=== PATIENT | male | born 1975 | race African-American/Black ===

== ENCOUNTER 2016-08-21 14:25 | Inpatient (IN) | payer SELFPAY ==
[~2016-08-21] VITALS: Ht 177.8 cm; Wt 108.9 kg
--- NOTE | 2016-08-21 14:48 | RAD ---
Clinical indications: Slurred speech and confusion today. Code stroke.. Technique: Noncontrast axial cross sectional scanning of the head was performed. PQRS Compliance Statement: One or more of the following individualized dose reduction techniques were utilized for this examination: 1. Automated exposure control 2. Adjustment of the mA and/or kV according to patient size 3. Use of iterative reconstruction technique Findings: No acute intracranial hemorrhage or midline shift or mass-effect or hydrocephalus or extra-axial fluid collection is seen. No focal hypodense area or sulci effacement is seen to indicate an acute infarct or edema radiographically. No skull fracture or pneumocephalus is seen. No opacification of the mastoid sinuses or the paranasal sinuses is seen. The maxillary sinuses are not completely seen in this study. Impression: No acute intracranial abnormality is seen. Note-this critical result was called to the emergency room physician at 2:46 PM on August 21, 2016.
--- NOTE | 2016-08-21 15:02 | EKG ---
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
[2016-08-21 15:13] LABS: BASO # 0.1 x10^3/uL (0.0-0.2); BASO % 1 % (0-3); EOS % 3 % (0-3); HEMATOCRIT 42.7 % (39.0-53.0); HEMOGLOBIN 13.6 g/dL (13.0-17.5); LYMPH % 33 % (24-48); MEAN CORPUSCULAR HEMOGLOBIN 23 pg (25-35); MEAN CORPUSCULAR HGB CONC 32 g/dL (31-37); MEAN CORPUSCULAR VOLUME 71 fL (79-100); MONO % 9 % (0-9); NEUT % 54 % (31-73); PLATELET COUNT 180 x10^3/uL (140-400); RED BLOOD COUNT 5.99 x10^6/uL (4.30-5.70); RED CELL DISTRIBUTION WIDTH 14.8 % (11.5-14.5); WHITE BLOOD COUNT 5.9 x10^3/uL (4.0-11.0)
[2016-08-21 15:25] LABS: CALCIUM 9.7 mg/dL (8.5-10.1); CREATININE 1.2 mg/dL (0.7-1.3); GFR 66.1
--- NOTE | 2016-08-21 15:43 | PDOC2 ---
NEUROLOGY CONSULT Date of Admission Date of Admission DATE: 08/21/16 TIME: 15:39 Reason for Consult Reason for Consult: TIA symptoms Referring Physician Referring Physician: Dr. Christianson Source Source: Caregiver, Chart review, Patient History of Present Illness History of Present Illness The patient is a 41-year-old right-handed male who was at work this morning when he noticed lightheadedness, dizziness, slurred speech, headache feelings. He had similar problems about 6 months ago for which she was admitted to [facility]. Stroke workup was negative and he was told his symptoms were due to hypoglycemia. Indeed, his blood sugar is 83 in the emergency department. He is feeling better, but his says that his speech is still slurred. There is no history of stroke, seizure, or head injury. 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 14 point review of systems is negative. Physical Exam Physical Examination PHYSICAL EXAMINATION: Vital signs: see above. General appearance is normal and in no acute distress. HEENT: Normocephalic and nontraumatic. Eyes, nose, ears, and throat are unremarkable. Neck is supple. No lymphadenopathy. No bruits are heard over the carotid artery. No crepitus. NEUROLOGICAL EXAMINATION: Mental Status Examination: Alert. Oriented to time, place, and person. Answers questions and follows commends. Pupils are equal round and reactive to light and accommodation. Funduscopic exam: No papilledema. Extraocular movements are intact. Visual field exam shows no defect on the direct confrontation. No motor or sensory deficits on the facial exam. Uvula in the midline and the soft palate elevated symmetrically. No deviation of the tongue to any direction. Gross hearing is normal. Shoulder shrug normal. Muscle tone is normal. Muscle strength is 5. Deep tendon reflexes are 2+ all around. Plantar reflex is with flexion response bilaterally. Gmcryl-cu-uuvg test performance is accurate. Tandem walk test is accurate. Alternative movements are accurate. Romberg test is negative. Gait is normal. Sensory exam shows no deficits. No cerebellar signs are elicited. Vitals VITALS Vital Signs Date Time Temp Pulse Resp B/P Pulse Ox O2 Delivery O2 Flow Rate FiO2 08/21/16 14:25 98.6 102 20 132/75 100 Room Air 98.6 Labs Labs Laboratory Tests Test 08/21/16 15:05 White Blood Count 5.9x10^3/uL (4.0-11.0) Red Blood Count 5.99x10^6/uL (4.30-5.70) Hemoglobin 13.6g/dL (13.0-17.5) Hematocrit 42.7% (39.0-53.0) Mean Corpuscular Volume 71fL (79-100) Mean Corpuscular Hemoglobin 23pg (25-35) Mean Corpuscular Hemoglobin Concent 32g/dL (31-37) Red Cell Distribution Width 14.8% (11.5-14.5) Platelet Count 180x10^3/uL (140-400) Neutrophils (%) (Auto) 54% (31-73) Lymphocytes (%) (Auto) 33% (24-48) Monocytes (%) (Auto) 9% (0-9) Eosinophils (%) (Auto) 3% (0-3) Basophils (%) (Auto) 1% (0-3) Neutrophils # (Auto) 3.2x10^3uL (1.8-7.7) Lymphocytes # (Auto) 2.0x10^3/uL (1.0-4.8) Monocytes # (Auto) 0.5x10^3/uL (0.0-1.1) Eosinophils # (Auto) 0.2x10^3/uL (0.0-0.7) Basophils # (Auto) 0.1x10^3/uL (0.0-0.2) Sodium Level 142mmol/L (136-145) Potassium Level 4.0mmol/L (3.5-5.1) Chloride Level 104mmol/L (98-107) Carbon Dioxide Level 28mmol/L (21-32) Anion Gap 10 (6-14) Blood Urea Nitrogen 18mg/dL (8-26) Creatinine 1.2mg/dL (0.7-1.3) Estimated GFR (Cockcroft-Gault) 66.1 Glucose Level 205mg/dL (70-99) Calcium Level 9.7mg/dL (8.5-10.1) Troponin I Quantitative < 0.017ng/mL (0.000-0.055) Laboratory Tests Test 08/21/16 15:05 White Blood Count 5.9x10^3/uL (4.0-11.0) Red Blood Count 5.99x10^6/uL (4.30-5.70) Hemoglobin 13.6g/dL (13.0-17.5) Hematocrit 42.7% (39.0-53.0) Mean Corpuscular Volume 71fL (79-100) Mean Corpuscular Hemoglobin 23pg (25-35) Mean Corpuscular Hemoglobin Concent 32g/dL (31-37) Red Cell Distribution Width 14.8% (11.5-14.5) Platelet Count 180x10^3/uL (140-400) Neutrophils (%) (Auto) 54% (31-73) Lymphocytes (%) (Auto) 33% (24-48) Monocytes (%) (Auto) 9% (0-9) Eosinophils (%) (Auto) 3% (0-3) Basophils (%) (Auto) 1% (0-3) Neutrophils # (Auto) 3.2x10^3uL (1.8-7.7) Lymphocytes # (Auto) 2.0x10^3/uL (1.0-4.8) Monocytes # (Auto) 0.5x10^3/uL (0.0-1.1) Eosinophils # (Auto) 0.2x10^3/uL (0.0-0.7) Basophils # (Auto) 0.1x10^3/uL (0.0-0.2) Sodium Level 142mmol/L (136-145) Potassium Level 4.0mmol/L (3.5-5.1) Chloride Level 104mmol/L (98-107) Carbon Dioxide Level 28mmol/L (21-32) Anion Gap 10 (6-14) Blood Urea Nitrogen 18mg/dL (8-26) Creatinine 1.2mg/dL (0.7-1.3) Estimated GFR (Cockcroft-Gault) 66.1 Glucose Level 205mg/dL (70-99) Calcium Level 9.7mg/dL (8.5-10.1) Troponin I Quantitative < 0.017ng/mL (0.000-0.055) Images Images CT head is negative Assessment/Plan Assessment/Plan Impression: Transient ischemic attack symptoms probably related to hypoglycemia as exam is normal now even though his says that he has dysarthria. He had similar symptoms in [facility] and was found to have hypoglycemia then, as well. He Recommendations: MRI of the brain Further studies only if MRI is negative Discussed with patient and his Hold on aspirin or other anticoagulation as he is allergic to aspirin Discussed with Dr. Christianson Thank you for letting me help with the patient's care. RISA REEVES MD Aug 21, 2016 15:43
[2016-08-21 15:51] LABS: HYPOCHROMIA SLIGHT; MICROCYTOSIS SLIGHT; POIKILOCYTOSIS SLIGHT
[2016-08-21 15:54] LABS: PLT ESTIMATE ADEQUATE (ADEQUATE)
--- NOTE | 2016-08-21 16:11 | PHYS DOC ---
Past Medical History Past Medical History: Diabetes-Type II, Hypertension Past Surgical History: No Surgical History Alcohol Use: None Drug Use: None Adult General Chief Complaint Chief Complaint: ALTERED MENTAL STATUS HPI HPI 41-year-old male who presents with acute onset of headache as well as concern for slurred speech approximately one hour prior to arrival. 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 Upon arrival the patient does state he has generalized headache but that this is not the worst headache he's had before. He states he does have history of headaches as well but these are usually in occurrence with a low blood sugar. Patient does state he ate prior to this headache but a blood sugar taken at the scene was 88 and he states this is low for him to be the source of his headache. Patient is able to articulate clearly at this time and I do not have any evidence that he is slurring his speech. He denies any focal weakness in his body. He is able to follow my commands and answer all my questions appropriately. He does have history of hypertension and diabetes type 2 as well. Review of Systems Review of Systems Constitutional: Denies fever or chills [] Eyes: Denies change in visual acuity, redness, or eye pain [] HENT: Denies nasal congestion or sore throat [] Respiratory: Denies cough or shortness of breath [] Cardiovascular: No additional information not addressed in HPI [] GI: Denies abdominal pain, nausea, vomiting, bloody stools or diarrhea [] : Denies dysuria or hematuria [] Musculoskeletal: Denies back pain or joint pain [] Integument: Denies rash or skin lesions [] Neurologic: Has headache, denies focal weakness or sensory changes [] Endocrine: Denies polyuria or polydipsia [] Current Medications Current Medications Current Medications Medications (Trade) Dose Ordered Sig/Vale Start Time Stop Time Status Last Admin Dose Admin Acetaminophen (Tylenol) 650 mg PRN Q4HRS PRN 08/21/16 16:15 08/22/16 16:14 Dexamethasone Sodium Phosphate (Decadron) 10 mg 1X ONCE 08/21/16 16:15 08/21/16 16:16 DC 08/21/16 16:16 10 MG Diphenhydramine HCl (Benadryl) 25 mg 1X ONCE 08/21/16 16:15 08/21/16 16:16 DC 08/21/16 16:17 25 MG Fentanyl Citrate (Fentanyl 2ml Vial) 50 mcg PRN Q2HR PRN 08/21/16 16:15 08/22/16 16:14 Ketorolac Tromethamine (Toradol) 30 mg 1X ONCE 08/21/16 16:15 08/21/16 16:16 DC 08/21/16 16:16 30 MG Metoclopramide HCl 10 mg 10 mg 1X ONCE 08/21/16 16:15 08/21/16 16:16 DC 08/21/16 16:15 10 MG Ondansetron HCl (Zofran) 4 mg PRN Q8HRS PRN 08/21/16 16:15 08/22/16 16:14 Sodium Chloride (Iv Sodium Chloride 0.9% 500ml Bag) 500 ml @ 500 mls/hr 1X ONCE 08/21/16 16:15 08/21/16 17:14 DC 08/21/16 16:17 500 MLS/HR Allergies Allergies Allergies Coded Allergies Type Severity Reaction Last Updated Verified aspirin Allergy Intermediate Hives 08/21/16 Yes Physical Exam Physical Exam Constitutional: Well developed, well nourished, no acute distress, non-toxic appearance. [] HENT: Normocephalic, atraumatic, bilateral external ears normal, oropharynx moist, no oral exudates, nose normal. [] Eyes: PERRLA, EOMI, conjunctiva normal, no discharge. [] Neck: Normal range of motion, no tenderness, supple, no stridor. [] Cardiovascular:Heart rate regular rhythm, no murmur [] Lungs & Thorax: Bilateral breath sounds clear to auscultation [] Abdomen: Bowel sounds normal, soft, no tenderness, no masses, no pulsatile masses. [] Skin: Warm, dry, no erythema, no rash. [] Back: No tenderness, no CVA tenderness. [] Extremities: No tenderness, no cyanosis, no clubbing, ROM intact, no edema. [] Neurologic: Alert and oriented X 3, normal motor function, normal sensory function, no focal deficits noted. [] Psychologic: Affect normal, judgement normal, mood normal. [] Current Patient Data Vital Signs Vital Signs Date Time Temp Pulse Resp B/P Pulse Ox O2 Delivery O2 Flow Rate FiO2 08/21/16 16:15 96 17 152/76 98 08/21/16 14:50 Room Air 08/21/16 14:25 98.6 98.6 Lab Values Laboratory Tests Test 08/21/16 15:05 White Blood Count 5.9x10^3/uL (4.0-11.0) Red Blood Count 5.99x10^6/uL (4.30-5.70) H Hemoglobin 13.6g/dL (13.0-17.5) Hematocrit 42.7% (39.0-53.0) Mean Corpuscular Volume 71fL (79-100) L Mean Corpuscular Hemoglobin 23pg (25-35) L Mean Corpuscular Hemoglobin Concent 32g/dL (31-37) Red Cell Distribution Width 14.8% (11.5-14.5) H Platelet Count 180x10^3/uL (140-400) Neutrophils (%) (Auto) 54% (31-73) Lymphocytes (%) (Auto) 33% (24-48) Monocytes (%) (Auto) 9% (0-9) Eosinophils (%) (Auto) 3% (0-3) Basophils (%) (Auto) 1% (0-3) Neutrophils # (Auto) 3.2x10^3uL (1.8-7.7) Lymphocytes # (Auto) 2.0x10^3/uL (1.0-4.8) Monocytes # (Auto) 0.5x10^3/uL (0.0-1.1) Eosinophils # (Auto) 0.2x10^3/uL (0.0-0.7) Basophils # (Auto) 0.1x10^3/uL (0.0-0.2) Platelet Estimate Adequate (ADEQUATE) Hypochromasia Slight Poikilocytosis Slight Anisocytosis Microcytosis Slight Sodium Level 142mmol/L (136-145) Potassium Level 4.0mmol/L (3.5-5.1) Chloride Level 104mmol/L (98-107) Carbon Dioxide Level 28mmol/L (21-32) Anion Gap 10 (6-14) Blood Urea Nitrogen 18mg/dL (8-26) Creatinine 1.2mg/dL (0.7-1.3) Estimated GFR (Cockcroft-Gault) 66.1 Glucose Level 205mg/dL (70-99) H Calcium Level 9.7mg/dL (8.5-10.1) Troponin I Quantitative < 0.017ng/mL (0.000-0.055) Laboratory Tests 08/21/16 15:05 Laboratory Tests 08/21/16 15:05 EKG EKG [] Radiology/Procedures Radiology/Procedures CT of the head without contrast demonstrates the following: Findings: No acute intracranial hemorrhage or midline shift or mass-effect or hydrocephalus or extra-axial fluid collection is seen. No focal hypodense area or sulci effacement is seen to indicate an acute infarct or edema radiographically. No skull fracture or pneumocephalus is seen. No opacification of the mastoid sinuses or the paranasal sinuses is seen. The maxillary sinuses are not completely seen in this study. Course & Med Decision Making Course & Med Decision Making Pertinent Labs and Imaging studies reviewed. (See chart for details) This 40-year-old male with ongoing headache had a CT of his head as negative for any acute abnormalities. The neurologist, Dr. Manning, was able to see the patient at bedside and stated the patient would be suitable to have an MRI he would be happy to consult. Patient was given a migraine cocktail for symptoms and felt improved. Patient has an MRI scheduled for the morning. It is possible this episode was related to a low blood glucose but in light of the fact that he has multiple comorbidities MRI and admission for observation is warranted. I discussed this need with the hospitalist, Dr. Christianson, who agreed with this assessment and plan. His laboratory workup was otherwise unremarkable. Upon multiple assessments, the patient does not have any slurred speech whatsoever and his headache has improved significantly prior to admission. Dragon Disclaimer Dragon Disclaimer This electronic medical record was generated, in whole or in part, using a voice recognition dictation system. Departure Departure Impression: Primary Impression: Headache Disposition: ADMITTED INPATIENT Admitting Physician: Jan Christianson Referrals: UNKNOWN PCP NAME (PCP) ORALIA MCKNIGHT DO Aug 21, 2016 16:11
[2016-08-21] MEDS ORDERED: DIPHENHYDRAMINE 50 MG/ML VIAL IVP ONE (16:15)
[2016-08-21] MEDS ORDERED: METOCLOPRAMIDE HCL 10 MG/2 ML VIAL. IV ONE (16:15)
[2016-08-21] MEDS ORDERED: FENTANYL PF 100 MCG/2 ML VIAL. IV PRN (16:15)
[2016-08-21] MEDS ORDERED: ONDANSETRON PF 4 MG/2 ML VIAL. IV PRN ×2 (16:15→21:15)
[2016-08-21] MEDS ORDERED: ACETAMINOPHEN 325 MG TABLET. PO PRN ×2 (16:15→21:15)
[2016-08-21] MEDS ORDERED: DEXAMETHASONE SOD PHOS 20 MG/5 ML VIAL. IV ONE (16:15)
[2016-08-21] MEDS ORDERED: KETOROLAC TROMETHAMINE 30 MG/ML SYRINGE. IV ONE (16:15)
[2016-08-21] MEDS ORDERED: IV NORMAL SALINE 500ML BAG 500 ML IV ONE (16:15)
[2016-08-21 17:30] VITALS: BP 121/77
[2016-08-21] MEDS ORDERED: ATOR20TA58 PO (18:18)
[2016-08-21] MEDS ORDERED: LISI10TA2 PO (18:18)
[2016-08-21] MEDS ORDERED: TIZA4TAB PO (18:18)
[2016-08-21] MEDS ORDERED: CANA1TAB4 PO (18:18)
[2016-08-21 19:05] VITALS: BP 123/71
[2016-08-21] MEDS ORDERED: DEXTROSE 50% 25 GM / 50ML DISP.SYRIN. IV PRN (21:15)
[2016-08-21] MEDS ORDERED: ALBUTEROL SULFATE 2.5 MG/3 ML NEBU. NEB PRN (21:15)
[2016-08-21] MEDS ORDERED: hydrALAZINE 20 MG/ML VIAL. IVP PRN (21:15)
[2016-08-21] MEDS: tiZANidine 4 MG TABLET. PO SCH (22:00)
[2016-08-21] MEDS: ATORVASTATIN CALCIUM 20 MG TABLET PO SCH (22:00)
[2016-08-21 23:11] VITALS: BP 101/48
[2016-08-22 03:10] VITALS: BP 131/76
[2016-08-22 05:54] LABS: BASO % 0 % (0-3); EOS % 0 % (0-3); HEMATOCRIT 42.5 % (39.0-53.0); LYMPH % 12 % (24-48); MEAN CORPUSCULAR HEMOGLOBIN 23 pg (25-35); MEAN CORPUSCULAR HGB CONC 31 g/dL (31-37); MEAN CORPUSCULAR VOLUME 73 fL (79-100); MONO % 4 % (0-9); NEUT % 85 % (31-73); PLATELET COUNT 168 x10^3/uL (140-400); RED BLOOD COUNT 5.79 x10^6/uL (4.30-5.70); RED CELL DISTRIBUTION WIDTH 15.2 % (11.5-14.5); WHITE BLOOD COUNT 8.8 x10^3/uL (4.0-11.0)
[2016-08-22 06:19] LABS: CALCIUM 9.2 mg/dL (8.5-10.1); CREATININE 1.2 mg/dL (0.7-1.3); POTASSIUM 4.2 mmol/L (3.5-5.1)
[2016-08-22 07:00] VITALS: BP 136/80
--- NOTE | 2016-08-22 07:22 | EKG ---
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
[2016-08-22] MEDS ORDERED: CLOPIDOGREL BISULFATE 75 MG TABLET PO ONE (07:45)
[2016-08-22] MEDS: INSULIN ASPART 300 UNITS/3 ML INSULN.PEN SQ SCH ×3 (08:00→18:01)
--- NOTE | 2016-08-22 09:47 | PDOC2 ---
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 He reports yesterday while at work he developed a significant headache. He was reportedly slurring his speech though that was not evident on presentation to ED. He also reports a heavy pressure sensation in his chest and achiness in his left arm. He reports that his left arm feels better if he is sitting up and raises it in the air. He also reports his chest discomfort is somewhat improved with sitting up. He denies dyspnea, congestive symptoms or palpitations. He denies lightheadedness or syncope. He does complain of neck pain. He denies any symptoms prior to yesterday. He reports he is very active. His significant other is at bedside and reports that he again began to have speech abnormalities this am when going for his MRI. PAST MEDICAL HISTORY Past Medical History diabetes mellitus PAST SURGICAL HISTORY Past Surgical History vasectomy FAMILY HISTORY Family History coronary artery disease SOCIAL HISTORY Social History non smoker, no significant ETOH, no illicit drugs CURRENT MEDICATIONS CURRENT MEDICATIONS Current Medications Medications (Trade) Dose Ordered Sig/Vale Route PRN Reason Start Time Stop Time Status Last Admin Dose Admin Ketorolac Tromethamine (Toradol) 30 mg 1X ONCE IV 08/21/16 16:15 08/21/16 16:16 DC 08/21/16 16:16 Diphenhydramine HCl (Benadryl) 25 mg 1X ONCE IVP 08/21/16 16:15 08/21/16 16:16 DC 08/21/16 16:17 Metoclopramide HCl 10 mg 10 mg 1X ONCE IV 08/21/16 16:15 08/21/16 16:16 DC 08/21/16 16:15 Sodium Chloride (Iv Sodium Chloride 0.9% 500ml Bag) 500 ml @ 500 mls/hr 1X ONCE IV 08/21/16 16:15 08/21/16 17:14 DC 08/21/16 16:17 Dexamethasone Sodium Phosphate (Decadron) 10 mg 1X ONCE IV 08/21/16 16:15 08/21/16 16:16 DC 08/21/16 16:16 Ondansetron HCl (Zofran) 4 mg PRN Q8HRS PRN IV NAUSEA/VOMITING 08/21/16 16:15 08/22/16 16:14 08/22/16 07:50 Clopidogrel Bisulfate (Plavix) 75 mg 1X ONCE PO 08/22/16 07:45 08/22/16 07:46 DC 08/22/16 07:47 ALLERGIES ALLERGIES: Coded Allergies: aspirin (Verified Allergy, Intermediate, Hives, 08/21/16) ROS Review of System as per HPI or negative PHYSICAL EXAM General: Alert, Oriented X3 (however it took several minutes for him to be able to tell me his age), Cooperative, No acute distress HEENT: Atraumatic, EOMI, Mucous membr. moist/pink Lungs: Clear to auscultation, Normal air movement Heart: Regular rate, Normal S1, Normal S2, Other (no gallops, clicks or rubs) Abdomen: Normal bowel sounds, Soft, No tenderness Extremities: No clubbing, No cyanosis, No edema, Normal pulses Neuro: Strength at 5/5 X4 ext, Other (dysarthria) Psych/Mental Status: Mood NL VITALS VITALS Vital Signs Date Time Temp Pulse Resp B/P Pulse Ox O2 Delivery O2 Flow Rate FiO2 08/22/16 03:10 97.7 93 16 131/76 96 Room Air 97.7 LABS Lab: Laboratory Tests Test 08/21/16 15:05 08/21/16 18:12 08/21/16 20:30 08/22/16 02:51 White Blood Count 5.9x10^3/uL (4.0-11.0) Red Blood Count 5.99x10^6/uL (4.30-5.70) Hemoglobin 13.6g/dL (13.0-17.5) Hematocrit 42.7% (39.0-53.0) Mean Corpuscular Volume 71fL (79-100) Mean Corpuscular Hemoglobin 23pg (25-35) Mean Corpuscular Hemoglobin Concent 32g/dL (31-37) Red Cell Distribution Width 14.8% (11.5-14.5) Platelet Count 180x10^3/uL (140-400) Neutrophils (%) (Auto) 54% (31-73) Lymphocytes (%) (Auto) 33% (24-48) Monocytes (%) (Auto) 9% (0-9) Eosinophils (%) (Auto) 3% (0-3) Basophils (%) (Auto) 1% (0-3) Neutrophils # (Auto) 3.2x10^3uL (1.8-7.7) Lymphocytes # (Auto) 2.0x10^3/uL (1.0-4.8) Monocytes # (Auto) 0.5x10^3/uL (0.0-1.1) Eosinophils # (Auto) 0.2x10^3/uL (0.0-0.7) Basophils # (Auto) 0.1x10^3/uL (0.0-0.2) Platelet Estimate Adequate (ADEQUATE) Hypochromasia Slight Poikilocytosis Slight Anisocytosis Microcytosis Slight Sodium Level 142mmol/L (136-145) Potassium Level 4.0mmol/L (3.5-5.1) Chloride Level 104mmol/L (98-107) Carbon Dioxide Level 28mmol/L (21-32) Anion Gap 10 (6-14) Blood Urea Nitrogen 18mg/dL (8-26) Creatinine 1.2mg/dL (0.7-1.3) Estimated GFR (Cockcroft-Gault) 66.1 Glucose Level 205mg/dL (70-99) Calcium Level 9.7mg/dL (8.5-10.1) Troponin I Quantitative < 0.017ng/mL (0.000-0.055) Glucose (Fingerstick) 179mg/dL (70-99) 328mg/dL (70-99) 292mg/dL (70-99) Test 08/22/16 04:37 08/22/16 04:57 08/22/16 06:55 08/22/16 07:30 White Blood Count 8.8x10^3/uL (4.0-11.0) Red Blood Count 5.79x10^6/uL (4.30-5.70) Hemoglobin 13.0g/dL (13.0-17.5) Hematocrit 42.5% (39.0-53.0) Mean Corpuscular Volume 73fL (79-100) Mean Corpuscular Hemoglobin 23pg (25-35) Mean Corpuscular Hemoglobin Concent 31g/dL (31-37) Red Cell Distribution Width 15.2% (11.5-14.5) Platelet Count 168x10^3/uL (140-400) Neutrophils (%) (Auto) 85% (31-73) Lymphocytes (%) (Auto) 12% (24-48) Monocytes (%) (Auto) 4% (0-9) Eosinophils (%) (Auto) 0% (0-3) Basophils (%) (Auto) 0% (0-3) Neutrophils # (Auto) 7.4x10^3uL (1.8-7.7) Lymphocytes # (Auto) 1.0x10^3/uL (1.0-4.8) Monocytes # (Auto) 0.3x10^3/uL (0.0-1.1) Eosinophils # (Auto) 0.0x10^3/uL (0.0-0.7) Basophils # (Auto) 0.0x10^3/uL (0.0-0.2) Sodium Level 137mmol/L (136-145) Potassium Level 4.2mmol/L (3.5-5.1) Chloride Level 101mmol/L (98-107) Carbon Dioxide Level 22mmol/L (21-32) Anion Gap 14 (6-14) Blood Urea Nitrogen 21mg/dL (8-26) Creatinine 1.2mg/dL (0.7-1.3) Estimated GFR (Cockcroft-Gault) 80.0 Glucose Level 290mg/dL (70-99) Calcium Level 9.2mg/dL (8.5-10.1) Glucose (Fingerstick) 238mg/dL (70-99) Troponin I Quantitative < 0.017ng/mL (0.000-0.055) Test 08/22/16 07:49 08/22/16 08:17 Glucose (Fingerstick) 226mg/dL (70-99) 231mg/dL (70-99) EKG EKG EKG - unable to view CT head - Impression: No acute intracranial abnormality is seen. MRI brain - pending ASSESSMENT/PLAN ASSESSMENT/PLAN 1. chest pain, atypical - Cardiac enzymes negative. RF reduction, Echo with bubble study. Consider OP MPI secondary to RF and family history. 2. dysarthria - MRI pending, Neuro following. Problems: KATRAPATI,LUISA S MD 08/22/16 1411: CARDIAC CONSULT ALLERGIES ALLERGIES: Coded Allergies: aspirin (Verified Allergy, Intermediate, Hives, 08/21/16) ASSESSMENT/PLAN ASSESSMENT/PLAN Pt. seen and examined. 41 y.o w/ TIA like symptoms. No clear neurological compromise on exam. MRI negative. Labs wnl. Consider outpt eval with echo/event monitor if recurrence, low likelihood that this is cardiac related. No further testing necessary. If he remains inpt for other reasons, will obtain echo prior to DC. Thx for consult. Pls call with questions. Problems: GINGER BRAN APRN Aug 22, 2016 09:47 LUISA BAHENA MD Aug 22, 2016 14:11
[2016-08-22] MEDS: LISINOPRIL 10 MG TABLET PO SCH (10:08)
[2016-08-22] MEDS: tiZANidine 4 MG TABLET. PO SCH ×3 (10:09→20:13)
--- NOTE | 2016-08-22 10:39 | RAD ---
BRAIN W/O CONTRAST History:TIA, left-sided weakness and speech difficulty for one hour Technique: Multiplanar, multi sequential noncontrast MR imaging was performed of the brain. Comparison: None other than head CT 08/21/2016 Findings: There is mild motion. There is no restricted diffusion suggestive of recent infarct or cytotoxic of the edema. There is no intra-axial mass effect, midline shift, extra axial fluid collection. Ventricles, sulci, cisterns are within normal limits in size and configuration. There is no significant focal signal abnormality including hemosiderin deposition of the brain parenchyma. There is preservation of the major arterial intracranial flow voids at the skull base. There is patchy mild ethmoid air cell mucosal thickening, very minimal maxillary and frontal sinus mucosal thickening.There is likely mucus retention cyst of the right sphenoid sinus, minimal left sphenoid sinus mucosal thickening. There is slightly disconjugate gaze. There is mild proptosis greater on the right. Cerebellar tonsils are normal in location. There is preservation of the marrow signal of the clivus. There is no significant abnormality of the pineal gland or pituitary gland. Impression: 1.There is no evidence of recent infarct or intracranial mass effect, no significant intracranial abnormality. 2. There is mild paranasal sinus mucosal thickening as stated. 3. There is nonspecific mild proptosis greater on the right.
[2016-08-22 11:00] VITALS: BP 119/81
[2016-08-22] MEDS: HYDROCODONE/APAP 5/325MG TABLET. PO PRN ×2 (11:45→18:03)
--- NOTE | 2016-08-22 11:57 | RAD ---
Carotid Doppler ultrasound History: Dizziness, left-sided weakness. Multiple grayscale and color sonographic images and spectral analysis waveform images were acquired of the carotid and vertebral arteries. Comparison: None Findings: Stenosis calculations for carotid ultrasound studies are derived from validated velocity criteria which are known to correlate with the NASCET methodology. Right: Proximal CCA PSV 122 cm/sec EDV 16 cm/sec Mid CCA PSV 118 cm/sec EDV 19 cm/sec Distal CCA PSV 86 cm/sec EDV 19 cm/sec Proximal ICA PSV 58 cm/sec EDV 21 cm/sec Mid ICA PSV 64 cm/sec EDV 25 cm/sec Distal ICA PSV 56 cm/sec EDV 29 cm/sec ECA PSV 77 cm/sec Vertebral PSV 16 cm/sec ICA/CCA ratio less than 1 Left: Proximal CCA PSV 166 cm/sec EDV 14 cm/sec Mid CCA PSV 127 cm/sec EDV 14 cm/sec Distal CCA PSV 125 cm/sec EDV 20 cm/sec Proximal ICA PSV 62 cm/sec EDV 23 cm/sec Mid ICA PSV 61 cm/sec EDV 21 cm/sec Distal ICA PSV 57 cm/sec EDV 23 cm/sec ECA PSV 105 cm/sec Vertebral PSV 47 cm/sec ICA/CCA ratio less than 1 There is antegrade flow in the bilateral vertebral arteries. No significant focal stenosis is demonstrated on grayscale or color images. Impression: There is no evidence of a hemodynamically significant stenosis..
[2016-08-22 15:00] VITALS: BP 115/64
[2016-08-22] MEDS ORDERED: DEXTROSE 50% 25 GM / 50ML DISP.SYRIN. IV PRN (17:00)
[2016-08-22 19:00] VITALS: BP 133/86
--- NOTE | 2016-08-22 19:58 | PDOC ---
PROGRESS NOTES Assessment Problems Medical Problems: (1) Headache Status: Acute Stroke symptoms, possibly related to hypoglycemia, possible migraine phenomenon , no evidence of acute stroke or other intracranial abnormality. He also had a negative workup in [place]. Plan Plavix Escitalopram for headache prevention Pain medications as already ordered Neurological workup has finished and he can probably be discharged tomorrow if he remains stable Subjective He has had fluctuating symptoms through the day including left-sided weakness and stuttering. Objective Vital Signs Date Time Temp Pulse Resp B/P Pulse Ox O2 Delivery O2 Flow Rate FiO2 08/22/16 15:00 97.9 79 16 115/64 95 Room Air 97.9 Intake and Output 08/22/16 07:00 Intake Total 240 ml Balance 240 ml Intake Oral 240 ml # Voids 3 PHYSICAL EXAM Alert. Oriented to time, place and person. Speech is a little slow, but not dysarthric PERRL. EOMI. CN: no focal findings. Muscle tone: normal. Muscle strength: 5/5 DTR: 2+ Plantar reflex: Flexor Gait: not examined in bed. Sensory exam: no abnormal findings. No cerebellar signs elicited. Review of Relevant I have reviewed the following items samson (where applicable) has been applied. Labs Laboratory Tests Test 08/21/16 15:05 08/21/16 18:12 08/21/16 20:30 08/22/16 02:51 White Blood Count 5.9x10^3/uL (4.0-11.0) Red Blood Count 5.99x10^6/uL (4.30-5.70) Hemoglobin 13.6g/dL (13.0-17.5) Hematocrit 42.7% (39.0-53.0) Mean Corpuscular Volume 71fL (79-100) Mean Corpuscular Hemoglobin 23pg (25-35) Mean Corpuscular Hemoglobin Concent 32g/dL (31-37) Red Cell Distribution Width 14.8% (11.5-14.5) Platelet Count 180x10^3/uL (140-400) Neutrophils (%) (Auto) 54% (31-73) Lymphocytes (%) (Auto) 33% (24-48) Monocytes (%) (Auto) 9% (0-9) Eosinophils (%) (Auto) 3% (0-3) Basophils (%) (Auto) 1% (0-3) Neutrophils # (Auto) 3.2x10^3uL (1.8-7.7) Lymphocytes # (Auto) 2.0x10^3/uL (1.0-4.8) Monocytes # (Auto) 0.5x10^3/uL (0.0-1.1) Eosinophils # (Auto) 0.2x10^3/uL (0.0-0.7) Basophils # (Auto) 0.1x10^3/uL (0.0-0.2) Platelet Estimate Adequate (ADEQUATE) Hypochromasia Slight Poikilocytosis Slight Anisocytosis Microcytosis Slight Sodium Level 142mmol/L (136-145) Potassium Level 4.0mmol/L (3.5-5.1) Chloride Level 104mmol/L (98-107) Carbon Dioxide Level 28mmol/L (21-32) Anion Gap 10 (6-14) Blood Urea Nitrogen 18mg/dL (8-26) Creatinine 1.2mg/dL (0.7-1.3) Estimated GFR (Cockcroft-Gault) 66.1 Glucose Level 205mg/dL (70-99) Calcium Level 9.7mg/dL (8.5-10.1) Troponin I Quantitative < 0.017ng/mL (0.000-0.055) Glucose (Fingerstick) 179mg/dL (70-99) 328mg/dL (70-99) 292mg/dL (70-99) Test 08/22/16 04:37 08/22/16 04:57 08/22/16 06:55 08/22/16 07:30 White Blood Count 8.8x10^3/uL (4.0-11.0) Red Blood Count 5.79x10^6/uL (4.30-5.70) Hemoglobin 13.0g/dL (13.0-17.5) Hematocrit 42.5% (39.0-53.0) Mean Corpuscular Volume 73fL (79-100) Mean Corpuscular Hemoglobin 23pg (25-35) Mean Corpuscular Hemoglobin Concent 31g/dL (31-37) Red Cell Distribution Width 15.2% (11.5-14.5) Platelet Count 168x10^3/uL (140-400) Neutrophils (%) (Auto) 85% (31-73) Lymphocytes (%) (Auto) 12% (24-48) Monocytes (%) (Auto) 4% (0-9) Eosinophils (%) (Auto) 0% (0-3) Basophils (%) (Auto) 0% (0-3) Neutrophils # (Auto) 7.4x10^3uL (1.8-7.7) Lymphocytes # (Auto) 1.0x10^3/uL (1.0-4.8) Monocytes # (Auto) 0.3x10^3/uL (0.0-1.1) Eosinophils # (Auto) 0.0x10^3/uL (0.0-0.7) Basophils # (Auto) 0.0x10^3/uL (0.0-0.2) Sodium Level 137mmol/L (136-145) Potassium Level 4.2mmol/L (3.5-5.1) Chloride Level 101mmol/L (98-107) Carbon Dioxide Level 22mmol/L (21-32) Anion Gap 14 (6-14) Blood Urea Nitrogen 21mg/dL (8-26) Creatinine 1.2mg/dL (0.7-1.3) Estimated GFR (Cockcroft-Gault) 80.0 Glucose Level 290mg/dL (70-99) Calcium Level 9.2mg/dL (8.5-10.1) Glucose (Fingerstick) 238mg/dL (70-99) Troponin I Quantitative < 0.017ng/mL (0.000-0.055) Test 08/22/16 07:49 08/22/16 08:17 08/22/16 09:45 08/22/16 12:27 Glucose (Fingerstick) 226mg/dL (70-99) 231mg/dL (70-99) 275mg/dL (70-99) Troponin I Quantitative < 0.017ng/mL (0.000-0.055) Test 08/22/16 16:31 Glucose (Fingerstick) 188mg/dL (70-99) Laboratory Tests Test 08/21/16 20:30 08/22/16 02:51 08/22/16 04:37 08/22/16 04:57 Glucose (Fingerstick) 328mg/dL (70-99) 292mg/dL (70-99) White Blood Count 8.8x10^3/uL (4.0-11.0) Red Blood Count 5.79x10^6/uL (4.30-5.70) Hemoglobin 13.0g/dL (13.0-17.5) Hematocrit 42.5% (39.0-53.0) Mean Corpuscular Volume 73fL (79-100) Mean Corpuscular Hemoglobin 23pg (25-35) Mean Corpuscular Hemoglobin Concent 31g/dL (31-37) Red Cell Distribution Width 15.2% (11.5-14.5) Platelet Count 168x10^3/uL (140-400) Neutrophils (%) (Auto) 85% (31-73) Lymphocytes (%) (Auto) 12% (24-48) Monocytes (%) (Auto) 4% (0-9) Eosinophils (%) (Auto) 0% (0-3) Basophils (%) (Auto) 0% (0-3) Neutrophils # (Auto) 7.4x10^3uL (1.8-7.7) Lymphocytes # (Auto) 1.0x10^3/uL (1.0-4.8) Monocytes # (Auto) 0.3x10^3/uL (0.0-1.1) Eosinophils # (Auto) 0.0x10^3/uL (0.0-0.7) Basophils # (Auto) 0.0x10^3/uL (0.0-0.2) Sodium Level 137mmol/L (136-145) Potassium Level 4.2mmol/L (3.5-5.1) Chloride Level 101mmol/L (98-107) Carbon Dioxide Level 22mmol/L (21-32) Anion Gap 14 (6-14) Blood Urea Nitrogen 21mg/dL (8-26) Creatinine 1.2mg/dL (0.7-1.3) Estimated GFR (Cockcroft-Gault) 80.0 Glucose Level 290mg/dL (70-99) Calcium Level 9.2mg/dL (8.5-10.1) Test 08/22/16 06:55 08/22/16 07:30 08/22/16 07:49 08/22/16 08:17 Glucose (Fingerstick) 238mg/dL (70-99) 226mg/dL (70-99) 231mg/dL (70-99) Troponin I Quantitative < 0.017ng/mL (0.000-0.055) Test 08/22/16 09:45 08/22/16 12:27 08/22/16 16:31 Troponin I Quantitative < 0.017ng/mL (0.000-0.055) Glucose (Fingerstick) 275mg/dL (70-99) 188mg/dL (70-99) Medications Current Medications Ketorolac Tromethamine (Toradol) 30 mg 1X ONCE IV Last administered on 16:16; Start 08/21/16 at 16:15; Stop 08/21/16 at 16:16; Status DC Diphenhydramine HCl (Benadryl) 25 mg 1X ONCE IVP Last administered on 16:17; Start 08/21/16 at 16:15; Stop 08/21/16 at 16:16; Status DC Metoclopramide HCl 10 mg 10 mg 1X ONCE IV Last administered on 08/21/16 16:15 ; Start 08/21/16 at 16:15; Stop 08/21/16 at 16:16; Status DC Sodium Chloride (Iv Sodium Chloride 0.9% 500ml Bag) 500 ml @ 500 mls/hr 1X ONCE IV Last administered on 08/21/16 16:17; Start 08/21/16 at 16:15; Stop 04/27 at 17:14; Status DC Dexamethasone Sodium Phosphate (Decadron) 10 mg 1X ONCE IV Last administered on 08/21/16 16:16; Start 08/21/16 at 16:15; Stop 08/21/16 at 16:16; Status DC Ondansetron HCl (Zofran) 4 mg PRN Q8HRS PRN IV NAUSEA/VOMITING Last administered on 08/22/16 07:50; Start 08/21/16 at 16:15; Stop 08/22/16 at 16:14 ; Status DC Fentanyl Citrate (Fentanyl 2ml Vial) 50 mcg PRN Q2HR PRN IV PAIN; Start at 16:15; Stop 08/22/16 at 16:14; Status DC Acetaminophen (Tylenol) 650 mg PRN Q4HRS PRN PO FEVER Last administered on 08/22 10:07; Start 08/21/16 at 16:15; Stop 08/22/16 at 16:14; Status DC Acetaminophen (Tylenol) 325 mg PRN Q6HRS PRN PO MILD PAIN / TEMP; Start at 21:15 Acetaminophen/ Hydrocodone Bitart (Lortab 5/325) 1 tab PRN Q6HRS PRN PO MODERATE TO SEVERE PAIN Last administered on 08/22/16 18:03; Start 08/21/16 at 21:15 Hydralazine HCl (Apresoline) 10 mg PRN Q4HRS PRN IVP ELEVATED BP, SEE COMMENTS ; Start 08/21/16 at 21:15 Ondansetron HCl (Zofran) 4 mg PRN Q8HRS PRN IV NAUSEA/VOMITING; Start 08/21/16 at 21:15 Albuterol Sulfate (Ventolin Neb Soln) 2.5 mg PRN Q4HRS PRN NEB SHORTNESS OF BREATH; Start 08/21/16 at 21:15 Atorvastatin Calcium (Lipitor) 20 mg QHS PO ; Start 08/21/16 at 22:00 Lisinopril (Prinivil) 10 mg DAILY PO Last administered on 08/22/16 10:08; Start 08/22/16 at 09:00 Tizanidine HCl (Zanaflex) 4 mg TID PO Last administered on 08/22/16 13:20; Start 08/21/16 at 22:00 Insulin Aspart (Novolog) 0-7 UNITS TIDWMEALS SQ Last administered on 08/22/16 13:21; Start 08/22/16 at 08:00; Stop 08/22/16 at 16:48; Status DC Dextrose 12.5 gm PRN Q15MIN PRN IV SEE COMMENTS; Start 08/21/16 at 21:15; Stop 08/22/16 at 16:51; Status DC Clopidogrel Bisulfate (Plavix) 75 mg 1X ONCE PO Last administered on 07:47; Start 08/22/16 at 07:45; Stop 08/22/16 at 07:46; Status DC Insulin Aspart (Novolog) 0-9 UNITS TIDWMEALS SQ Last administered on 08/22/16t 18:01; Start 08/22/16 at 17:00 Dextrose 12.5 gm PRN Q15MIN PRN IV SEE COMMENTS; Start 08/22/16 at 17:00 Active Scripts Active Reported Invokamet 150-1,000 mg Tablet (Canagliflozin/Metformin HCl) 1 Each Tablet 150-1, 000 PO BID Tizanidine Hcl 4 Mg Tablet 4 PO TID Atorvastatin Calcium 20 Mg Tablet 20 PO Lisinopril 10 Mg Tablet 10 PO DAILY Vitals/I & O Vital Sign - Last 24 Hours 08/21/16 08/21/16 08/22/16 08/22/16 20:00 23:11 03:10 07:00 Temp 97.5 97.7 98.1 97.5 97.7 98.1 Pulse 92 93 101 Resp 16 16 16 B/P 101/48 131/76 136/80 Pulse Ox 96 96 95 O2 Delivery Room Air Room Air Room Air Room Air 08/22/16 08/22/16 08/22/16 08/22/16 08:00 10:08 11:00 15:00 Temp 97.5 97.9 97.5 97.9 Pulse 101 94 79 Resp 16 16 B/P 136/80 119/81 115/64 Pulse Ox 98 95 O2 Delivery Room Air Room Air Room Air Intake and Output 08/21/16 08/21/16 08/22/16 15:00 23:00 07:00 Intake Total 240 ml Balance 240 ml Images MRI: 1.There is no evidence of recent infarct or intracranial mass effect, no significant intracranial abnormality. 2. There is mild paranasal sinus mucosal thickening as stated. 3. There is nonspecific mild proptosis greater on the right. Carotids: negative Echo: pending RISA REEVES MD Aug 22, 2016 19:58
[2016-08-22] MEDS: ATORVASTATIN CALCIUM 20 MG TABLET PO SCH (20:13)
[2016-08-22 23:47] VITALS: BP 114/62
--- NOTE | 2016-08-23 01:05 | HP ---
ADMIT DATE: 08/21/2016 CHIEF COMPLAINT: Mental status change. HISTORY OF PRESENT ILLNESS: The patient is a pleasant 41-year-old male presented with headache and mental status change. 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 The patient does have a known history of diabetes, hypertension. While in the ER, his pain was not managed. He was admitted to the medical floor this morning. He had some acute stroke symptoms. He was sent to the MRI machine. He is now just back to his room after the MRI is completed. He is starting to feel a little bit better, but still has some left-sided weakness and slurred speech. PAST MEDICAL HISTORY: TIA, headaches, diabetes, hypertension. ALLERGIES: ASPIRIN. FAMILY HISTORY: Hypertension. SOCIAL HISTORY: He is , does not drink, smoke or take drugs. 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 MEDICATIONS: Reviewed, please refer to the MRAD. REVIEW OF SYSTEMS: GENERAL: No history of weight change, weakness or fevers. SKIN: No bruising, hair changes or rashes. EYES: No blurred, double or loss of vision. NOSE AND THROAT: No history of nosebleeds, hoarseness or sore throat. HEART: No history of palpitations, chest pain or shortness of breath on exertion. LUNGS: Denies cough, hemoptysis, wheezing or shortness of breath. GASTROINTESTINAL: Denies changes in appetite, nausea, vomiting, diarrhea or constipation. GENITOURINARY: No history of frequency, urgency, hesitancy or nocturia. NEUROLOGIC: Complains of weakness on the left side and poor speech. PSYCHIATRIC: No history of panic, anxiety or depression. ENDOCRINE: No history of heat or cold intolerance, polyuria or polydipsia. EXTREMITIES: Denies muscle weakness, joint pain, pain on walking or stiffness. PHYSICAL EXAMINATION: VITAL SIGNS: Temperature afebrile, pulse 77, respirations 18, blood pressure 101/48. GENERAL: He is alert, weak, a little bit of a flat affect. His is present. She is a good support for him. HEART: Normal S1, S2. LUNGS: Clear. ABDOMEN: Soft, positive bowel sounds. EXTREMITIES: No edema. SKIN: No rashes. PSYCHIATRIC: He seems a little depressed. VASCULAR: Good capillary refill. ENDOCRINE: No thyromegaly. LYMPHATICS: No cervical nodes. HEMATOPOIETIC: No bruising. LABORATORY DATA: White count 6, hemoglobin 13, platelets 180. Electrolytes are pending. Troponin 0. MRI of the brain is pending. ASSESSMENT AND PLAN: Stroke symptoms. The patient has been admitted. We are consulting Neurology. We are awaiting MRI. For now, we will continue home medicines, p.r.n. narcotics for his pain. PROGNOSIS: Guarded. AURORA RCOFT DO DR: JANA/abundio JOB#: [id number] / [id number]
--- NOTE | 2016-08-23 04:14 | HP ---
ADMIT DATE: 08/21/2016 CHIEF COMPLAINT: Headache. HISTORY OF PRESENT ILLNESS: A 41-year-old -Spanish male patient with prior history of hypertension, diabetes, presented to the ER with complaints of headache, it started in the back of head and spreading to his forehead. Also as per the family and , slurring of speech and dizziness, started this morning. The patient denies any noncompliance with his diet or medication. The patient had similar symptoms in the past. At that time, he was evaluated at [facility] nearly 6 months ago. His stroke workup was negative. Today, his blood sugar in the ER was ____. At the time of my examination, his speech is very clear, denies any symptoms such as weakness, however, he still complains of headaches. PAST MEDICAL HISTORY: Hypertension, diabetes. PAST SURGICAL HISTORY: None. FAMILY HISTORY: Coronary artery disease. SOCIAL HISTORY: No smoking, no alcohol, no drug abuse. 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 ALLERGIES: Aspirin. REVIEW OF SYSTEMS: CONSTITUTIONAL: No fever or chills. EYES: No recent vision changes. SKIN: No rash or itching. CARDIOVASCULAR: No chest pain, syncope, palpitations or edema. RESPIRATORY: No shortness of breath, cough. GASTROINTESTINAL: No nausea, vomiting, diarrhea or abdominal pain. NEUROLOGICAL: Headache. ENDOCRINOLOGIC: No cold or heat intolerance. GENITOURINARY: No burning with urination, no urgency. MUSCULOSKELETAL: No back pain or joint pain. LYMPHATICS: No enlarged nodes. PSYCHIATRIC: No anxiety or depression. PHYSICAL EXAM: VITAL SIGNS: Temperature 97.5, blood pressure is 123/71, pulse is 89, respirations 16, pulse ox 96 on room air. GENERAL: No apparent distress. HEENT: Head normocephalic, atraumatic. NECK: Supple. LUNGS: Clear to auscultation. HEART: Regular rate and rhythm; S1, S2 present; pulses intact. ABDOMEN: Soft and positive bowel sounds. EXTREMITIES: No cyanosis or edema. NEUROLOGIC: Normal speech and normal tone; alert and oriented. PSYCHIATRIC: Normal affect, normal mood. SKIN: No ulceration. LABORATORY FINDINGS: WBC 5.9, hemoglobin is 13.6, MCV 71, platelets 180. Chemistry: Sodium is 142, potassium 4, chloride is 104, carbon dioxide is 28, anion gap is 10, BUN is 18, creatinine is 1.2, glucose is 205. IMAGING STUDIES: CT of the head, no acute intracranial process seen. ASSESSMENT: 1. Headache and questionable TIA, suspect due othyperglycemia. 2. Hypertension. 3. Hyperglycemia/hypoglycemia. PLAN: 1. The patient has been evaluated by Neurology in the ER and currently we are going to get an MRI of the brain. 2. Sliding scale insulin. Hold off home medications at this time. 3. Neuro checks as per protocol. 4. Blood pressure control, goal is less than 140; p.r.n. IV hydralazine for systolic blood pressure more than 170. 5. Physical therapy and occupational therapy. 6. Follow Neurology recommendations. 7. Tylenol for headache and if the symptoms did not improve, add fentanyl. CARLO VALADEZ MD DR: LULA/abundio JOB#: [id number] / [id number] ANTONELLA
[2016-08-23 05:33] LABS: BASO # 0.1 x10^3/uL (0.0-0.2); BASO % 1 % (0-3); EOS % 2 % (0-3); HEMATOCRIT 40.1 % (39.0-53.0); HEMOGLOBIN 12.8 g/dL (13.0-17.5); LYMPH # 2.9 x10^3/uL (1.0-4.8); LYMPH % 35 % (24-48); MEAN CORPUSCULAR HEMOGLOBIN 23 pg (25-35); MEAN CORPUSCULAR HGB CONC 32 g/dL (31-37); MEAN CORPUSCULAR VOLUME 72 fL (79-100); MONO % 8 % (0-9); NEUT % 54 % (31-73); PLATELET COUNT 171 x10^3/uL (140-400); RED BLOOD COUNT 5.58 x10^6/uL (4.30-5.70); RED CELL DISTRIBUTION WIDTH 14.6 % (11.5-14.5); WHITE BLOOD COUNT 8.3 x10^3/uL (4.0-11.0)
[2016-08-23 05:51] LABS: CALCIUM 8.6 mg/dL (8.5-10.1); CREATININE 1.1 mg/dL (0.7-1.3); GFR 88.4; POTASSIUM 3.7 mmol/L (3.5-5.1)
[2016-08-23 07:00] VITALS: BP 126/84
[2016-08-23] MEDS: LISINOPRIL 10 MG TABLET PO SCH (07:54)
[2016-08-23] MEDS: tiZANidine 4 MG TABLET. PO SCH ×2 (07:55→14:00)
[2016-08-23] MEDS ORDERED: CLOPIDOGREL BISULFATE 75 MG TABLET PO SCH (08:00)
[2016-08-23] MEDS: INSULIN ASPART 300 UNITS/3 ML INSULN.PEN SQ SCH ×3 (08:23→17:52)
[2016-08-23] MEDS ORDERED: ESCITALOPRAM 10 MG TABLET. PO SCH (09:00)
[2016-08-23 11:00] VITALS: BP 148/75
--- NOTE | 2016-08-23 14:33 | PDOC ---
PROGRESS NOTES Assessment Problems Medical Problems: (1) Headache Status: Acute Stroke symptoms, possibly related to hypoglycemia, possible migraine phenomenon , no evidence of acute stroke or other intracranial abnormality. He also had a negative workup in [place] (but I could not find records there). Plan Plavix Escitalopram for headache prevention Okay for discharge No restrictions on activity Followup with me in 2 months or he can see a neurologist closer to home Subjective Denies headaches or any other neurological symptoms, wants to go home Objective Vital Signs Date Time Temp Pulse Resp B/P Pulse Ox O2 Delivery O2 Flow Rate FiO2 08/23/16 11:00 97.9 91 16 148/75 97 Room Air 97.9 Intake and Output 08/23/16 07:00 Intake Total 1800 ml Balance 1800 ml Intake Oral 1800 ml # Voids 3 PHYSICAL EXAM Alert. Oriented to time, place and person. Speech normal PERRL. EOMI. CN: no focal findings. Muscle tone: normal. Muscle strength: 5/5 DTR: 2+ Plantar reflex: Flexor Gait: not examined in bed. Sensory exam: no abnormal findings. No cerebellar signs elicited. Review of Relevant I have reviewed the following items samson (where applicable) has been applied. Labs Laboratory Tests Test 08/21/16 15:05 08/21/16 18:12 08/21/16 20:30 08/22/16 02:51 White Blood Count 5.9x10^3/uL (4.0-11.0) Red Blood Count 5.99x10^6/uL (4.30-5.70) Hemoglobin 13.6g/dL (13.0-17.5) Hematocrit 42.7% (39.0-53.0) Mean Corpuscular Volume 71fL (79-100) Mean Corpuscular Hemoglobin 23pg (25-35) Mean Corpuscular Hemoglobin Concent 32g/dL (31-37) Red Cell Distribution Width 14.8% (11.5-14.5) Platelet Count 180x10^3/uL (140-400) Neutrophils (%) (Auto) 54% (31-73) Lymphocytes (%) (Auto) 33% (24-48) Monocytes (%) (Auto) 9% (0-9) Eosinophils (%) (Auto) 3% (0-3) Basophils (%) (Auto) 1% (0-3) Neutrophils # (Auto) 3.2x10^3uL (1.8-7.7) Lymphocytes # (Auto) 2.0x10^3/uL (1.0-4.8) Monocytes # (Auto) 0.5x10^3/uL (0.0-1.1) Eosinophils # (Auto) 0.2x10^3/uL (0.0-0.7) Basophils # (Auto) 0.1x10^3/uL (0.0-0.2) Platelet Estimate Adequate (ADEQUATE) Hypochromasia Slight Poikilocytosis Slight Anisocytosis Microcytosis Slight Sodium Level 142mmol/L (136-145) Potassium Level 4.0mmol/L (3.5-5.1) Chloride Level 104mmol/L (98-107) Carbon Dioxide Level 28mmol/L (21-32) Anion Gap 10 (6-14) Blood Urea Nitrogen 18mg/dL (8-26) Creatinine 1.2mg/dL (0.7-1.3) Estimated GFR (Cockcroft-Gault) 66.1 Glucose Level 205mg/dL (70-99) Calcium Level 9.7mg/dL (8.5-10.1) Troponin I Quantitative < 0.017ng/mL (0.000-0.055) Glucose (Fingerstick) 179mg/dL (70-99) 328mg/dL (70-99) 292mg/dL (70-99) Test 08/22/16 04:37 08/22/16 04:57 08/22/16 06:55 08/22/16 07:30 White Blood Count 8.8x10^3/uL (4.0-11.0) Red Blood Count 5.79x10^6/uL (4.30-5.70) Hemoglobin 13.0g/dL (13.0-17.5) Hematocrit 42.5% (39.0-53.0) Mean Corpuscular Volume 73fL (79-100) Mean Corpuscular Hemoglobin 23pg (25-35) Mean Corpuscular Hemoglobin Concent 31g/dL (31-37) Red Cell Distribution Width 15.2% (11.5-14.5) Platelet Count 168x10^3/uL (140-400) Neutrophils (%) (Auto) 85% (31-73) Lymphocytes (%) (Auto) 12% (24-48) Monocytes (%) (Auto) 4% (0-9) Eosinophils (%) (Auto) 0% (0-3) Basophils (%) (Auto) 0% (0-3) Neutrophils # (Auto) 7.4x10^3uL (1.8-7.7) Lymphocytes # (Auto) 1.0x10^3/uL (1.0-4.8) Monocytes # (Auto) 0.3x10^3/uL (0.0-1.1) Eosinophils # (Auto) 0.0x10^3/uL (0.0-0.7) Basophils # (Auto) 0.0x10^3/uL (0.0-0.2) Sodium Level 137mmol/L (136-145) Potassium Level 4.2mmol/L (3.5-5.1) Chloride Level 101mmol/L (98-107) Carbon Dioxide Level 22mmol/L (21-32) Anion Gap 14 (6-14) Blood Urea Nitrogen 21mg/dL (8-26) Creatinine 1.2mg/dL (0.7-1.3) Estimated GFR (Cockcroft-Gault) 80.0 Glucose Level 290mg/dL (70-99) Calcium Level 9.2mg/dL (8.5-10.1) Glucose (Fingerstick) 238mg/dL (70-99) Troponin I Quantitative < 0.017ng/mL (0.000-0.055) Test 08/22/16 07:49 08/22/16 08:17 08/22/16 09:45 08/22/16 12:27 Glucose (Fingerstick) 226mg/dL (70-99) 231mg/dL (70-99) 275mg/dL (70-99) Troponin I Quantitative < 0.017ng/mL (0.000-0.055) Test 08/22/16 16:31 08/22/16 20:37 08/23/16 04:16 08/23/16 05:00 Glucose (Fingerstick) 188mg/dL (70-99) 175mg/dL (70-99) Sodium Level 137mmol/L (136-145) Potassium Level 3.7mmol/L (3.5-5.1) Chloride Level 103mmol/L (98-107) Carbon Dioxide Level 26mmol/L (21-32) Anion Gap 8 (6-14) Blood Urea Nitrogen 22mg/dL (8-26) Creatinine 1.1mg/dL (0.7-1.3) Estimated GFR (Cockcroft-Gault) 88.4 Glucose Level 208mg/dL (70-99) Calcium Level 8.6mg/dL (8.5-10.1) White Blood Count 8.3x10^3/uL (4.0-11.0) Red Blood Count 5.58x10^6/uL (4.30-5.70) Hemoglobin 12.8g/dL (13.0-17.5) Hematocrit 40.1% (39.0-53.0) Mean Corpuscular Volume 72fL (79-100) Mean Corpuscular Hemoglobin 23pg (25-35) Mean Corpuscular Hemoglobin Concent 32g/dL (31-37) Red Cell Distribution Width 14.6% (11.5-14.5) Platelet Count 171x10^3/uL (140-400) Neutrophils (%) (Auto) 54% (31-73) Lymphocytes (%) (Auto) 35% (24-48) Monocytes (%) (Auto) 8% (0-9) Eosinophils (%) (Auto) 2% (0-3) Basophils (%) (Auto) 1% (0-3) Neutrophils # (Auto) 4.5x10^3uL (1.8-7.7) Lymphocytes # (Auto) 2.9x10^3/uL (1.0-4.8) Monocytes # (Auto) 0.7x10^3/uL (0.0-1.1) Eosinophils # (Auto) 0.2x10^3/uL (0.0-0.7) Basophils # (Auto) 0.1x10^3/uL (0.0-0.2) Test 08/23/16 08:08 08/23/16 11:16 Glucose (Fingerstick) 219mg/dL (70-99) 202mg/dL (70-99) Laboratory Tests Test 08/22/16 16:31 08/22/16 20:37 08/23/16 04:16 08/23/16 05:00 Glucose (Fingerstick) 188mg/dL (70-99) 175mg/dL (70-99) Sodium Level 137mmol/L (136-145) Potassium Level 3.7mmol/L (3.5-5.1) Chloride Level 103mmol/L (98-107) Carbon Dioxide Level 26mmol/L (21-32) Anion Gap 8 (6-14) Blood Urea Nitrogen 22mg/dL (8-26) Creatinine 1.1mg/dL (0.7-1.3) Estimated GFR (Cockcroft-Gault) 88.4 Glucose Level 208mg/dL (70-99) Calcium Level 8.6mg/dL (8.5-10.1) White Blood Count 8.3x10^3/uL (4.0-11.0) Red Blood Count 5.58x10^6/uL (4.30-5.70) Hemoglobin 12.8g/dL (13.0-17.5) Hematocrit 40.1% (39.0-53.0) Mean Corpuscular Volume 72fL (79-100) Mean Corpuscular Hemoglobin 23pg (25-35) Mean Corpuscular Hemoglobin Concent 32g/dL (31-37) Red Cell Distribution Width 14.6% (11.5-14.5) Platelet Count 171x10^3/uL (140-400) Neutrophils (%) (Auto) 54% (31-73) Lymphocytes (%) (Auto) 35% (24-48) Monocytes (%) (Auto) 8% (0-9) Eosinophils (%) (Auto) 2% (0-3) Basophils (%) (Auto) 1% (0-3) Neutrophils # (Auto) 4.5x10^3uL (1.8-7.7) Lymphocytes # (Auto) 2.9x10^3/uL (1.0-4.8) Monocytes # (Auto) 0.7x10^3/uL (0.0-1.1) Eosinophils # (Auto) 0.2x10^3/uL (0.0-0.7) Basophils # (Auto) 0.1x10^3/uL (0.0-0.2) Test 08/23/16 08:08 08/23/16 11:16 Glucose (Fingerstick) 219mg/dL (70-99) 202mg/dL (70-99) Medications Current Medications Ketorolac Tromethamine (Toradol) 30 mg 1X ONCE IV Last administered on 16:16; Start 08/21/16 at 16:15; Stop 08/21/16 at 16:16; Status DC Diphenhydramine HCl (Benadryl) 25 mg 1X ONCE IVP Last administered on 16:17; Start 08/21/16 at 16:15; Stop 08/21/16 at 16:16; Status DC Metoclopramide HCl 10 mg 10 mg 1X ONCE IV Last administered on 08/21/16 16:15 ; Start 08/21/16 at 16:15; Stop 08/21/16 at 16:16; Status DC Sodium Chloride (Iv Sodium Chloride 0.9% 500ml Bag) 500 ml @ 500 mls/hr 1X ONCE IV Last administered on 08/21/16 16:17; Start 08/21/16 at 16:15; Stop 04/27 at 17:14; Status DC Dexamethasone Sodium Phosphate (Decadron) 10 mg 1X ONCE IV Last administered on 08/21/16 16:16; Start 08/21/16 at 16:15; Stop 08/21/16 at 16:16; Status DC Ondansetron HCl (Zofran) 4 mg PRN Q8HRS PRN IV NAUSEA/VOMITING Last administered on 08/22/16 07:50; Start 08/21/16 at 16:15; Stop 08/22/16 at 16:14 ; Status DC Fentanyl Citrate (Fentanyl 2ml Vial) 50 mcg PRN Q2HR PRN IV PAIN; Start at 16:15; Stop 08/22/16 at 16:14; Status DC Acetaminophen (Tylenol) 650 mg PRN Q4HRS PRN PO FEVER Last administered on 08/22 10:07; Start 08/21/16 at 16:15; Stop 08/22/16 at 16:14; Status DC Acetaminophen (Tylenol) 325 mg PRN Q6HRS PRN PO MILD PAIN / TEMP; Start at 21:15 Acetaminophen/ Hydrocodone Bitart (Lortab 5/325) 1 tab PRN Q6HRS PRN PO MODERATE TO SEVERE PAIN Last administered on 08/22/16 18:03; Start 08/21/16 at 21:15 Hydralazine HCl (Apresoline) 10 mg PRN Q4HRS PRN IVP ELEVATED BP, SEE COMMENTS ; Start 08/21/16 at 21:15 Ondansetron HCl (Zofran) 4 mg PRN Q8HRS PRN IV NAUSEA/VOMITING; Start 08/21/16 at 21:15 Albuterol Sulfate (Ventolin Neb Soln) 2.5 mg PRN Q4HRS PRN NEB SHORTNESS OF BREATH; Start 08/21/16 at 21:15 Atorvastatin Calcium (Lipitor) 20 mg QHS PO Last administered on 08/22/16 20: 13; Start 08/21/16 at 22:00 Lisinopril (Prinivil) 10 mg DAILY PO Last administered on 08/23/16 07:54; Start 08/22/16 at 09:00 Tizanidine HCl (Zanaflex) 4 mg TID PO Last administered on 08/23/16 07:55; Start 08/21/16 at 22:00 Insulin Aspart (Novolog) 0-7 UNITS TIDWMEALS SQ Last administered on 08/22/16 13:21; Start 08/22/16 at 08:00; Stop 08/22/16 at 16:48; Status DC Dextrose 12.5 gm PRN Q15MIN PRN IV SEE COMMENTS; Start 08/21/16 at 21:15; Stop 08/22/16 at 16:51; Status DC Clopidogrel Bisulfate (Plavix) 75 mg 1X ONCE PO Last administered on 07:47; Start 08/22/16 at 07:45; Stop 08/22/16 at 07:46; Status DC Insulin Aspart (Novolog) 0-9 UNITS TIDWMEALS SQ Last administered on 08/23/16 12:53; Start 08/22/16 at 17:00 Dextrose 12.5 gm PRN Q15MIN PRN IV SEE COMMENTS; Start 08/22/16 at 17:00 Escitalopram Oxalate (Lexapro) 10 mg DAILY PO Last administered on 08/23/16 09 :02; Start 08/23/16 at 09:00 Clopidogrel Bisulfate (Plavix) 75 mg DAILYWBKFT PO Last administered on 07:54; Start 08/23/16 at 08:00 Active Scripts Active Reported Invokamet 150-1,000 mg Tablet (Canagliflozin/Metformin HCl) 1 Each Tablet 150-1, 000 PO BID Tizanidine Hcl 4 Mg Tablet 4 PO TID Atorvastatin Calcium 20 Mg Tablet 20 PO Lisinopril 10 Mg Tablet 10 PO DAILY Vitals/I & O Vital Sign - Last 24 Hours 08/22/16 08/22/16 08/22/16 08/22/16 15:00 19:00 20:00 23:47 Temp 97.9 98.3 97.9 97.9 98.3 97.9 Pulse 79 95 82 Resp 16 16 16 B/P 115/64 133/86 114/62 Pulse Ox 95 96 95 O2 Delivery Room Air Room Air Room Air Room Air 08/23/16 08/23/16 08/23/16 08/23/16 03:00 07:00 07:54 08:00 Temp 97.5 97.5 Pulse 94 82 Resp 16 B/P 126/84 114/62 Pulse Ox 98 O2 Delivery Room Air Room Air Room Air 08/23/16 11:00 Temp 97.9 97.9 Pulse 91 Resp 16 B/P 148/75 Pulse Ox 97 O2 Delivery Room Air Intake and Output 08/22/16 08/22/16 08/23/16 15:00 23:00 07:00 Intake Total 460 ml 1340 ml Balance 460 ml 1340 ml Images Echocardiogram pending RISA REEVES MD Aug 23, 2016 14:33
[2016-08-23 15:00] VITALS: BP 127/82
--- NOTE | 2016-08-23 15:10 | PDOC ---
PROGRESS NOTES Chief Complaint Chief Complaint CC: Mental Status Change 1. TIA 2. Headaches 3. DM 4. HTN History of Present Illness History of Present Illness Pt up in bed Pt returning to baseline Possible D/C today if OK with subspecialties RADHA SOLORZANO RN Vitals Vitals Vital Signs Date Time Temp Pulse Resp B/P Pulse Ox O2 Delivery O2 Flow Rate FiO2 08/23/16 11:00 97.9 91 16 148/75 97 Room Air 97.9 Physical Exam General: Alert, Oriented X3 (however it took several minutes for him to be able to tell me his age), Cooperative, No acute distress Heart: Regular rate, Normal S1, Normal S2, Other (no gallops, clicks or rubs) Lungs: Clear, Other (No wheezes) Abdomen: Normal bowel sounds, Soft, No tenderness Extremities: No clubbing, No cyanosis, No edema, Normal pulses Skin: No rashes, No breakdown Labs LABS Laboratory Tests Test 08/22/16 16:31 08/22/16 20:37 08/23/16 04:16 08/23/16 05:00 Glucose (Fingerstick) 188mg/dL (70-99) 175mg/dL (70-99) Sodium Level 137mmol/L (136-145) Potassium Level 3.7mmol/L (3.5-5.1) Chloride Level 103mmol/L (98-107) Carbon Dioxide Level 26mmol/L (21-32) Anion Gap 8 (6-14) Blood Urea Nitrogen 22mg/dL (8-26) Creatinine 1.1mg/dL (0.7-1.3) Estimated GFR (Cockcroft-Gault) 88.4 Glucose Level 208mg/dL (70-99) Calcium Level 8.6mg/dL (8.5-10.1) White Blood Count 8.3x10^3/uL (4.0-11.0) Red Blood Count 5.58x10^6/uL (4.30-5.70) Hemoglobin 12.8g/dL (13.0-17.5) Hematocrit 40.1% (39.0-53.0) Mean Corpuscular Volume 72fL (79-100) Mean Corpuscular Hemoglobin 23pg (25-35) Mean Corpuscular Hemoglobin Concent 32g/dL (31-37) Red Cell Distribution Width 14.6% (11.5-14.5) Platelet Count 171x10^3/uL (140-400) Neutrophils (%) (Auto) 54% (31-73) Lymphocytes (%) (Auto) 35% (24-48) Monocytes (%) (Auto) 8% (0-9) Eosinophils (%) (Auto) 2% (0-3) Basophils (%) (Auto) 1% (0-3) Neutrophils # (Auto) 4.5x10^3uL (1.8-7.7) Lymphocytes # (Auto) 2.9x10^3/uL (1.0-4.8) Monocytes # (Auto) 0.7x10^3/uL (0.0-1.1) Eosinophils # (Auto) 0.2x10^3/uL (0.0-0.7) Basophils # (Auto) 0.1x10^3/uL (0.0-0.2) Test 08/23/16 08:08 08/23/16 11:16 Glucose (Fingerstick) 219mg/dL (70-99) 202mg/dL (70-99) Review of Systems Review of Systems Complains of fatigue Complains of hunger Assessment and Plan Assessmemt and Plan Problems Medical Problems: (1) Headache Status: Acute Assessment: CC: Mental Status Change 1. TIA 2. Headaches 3. DM 4. HTN Plan: Possible D/C today if OK with subspecialties Start Plavix Start Escitalopram F/U with neurologist in 2 months No activity restrictions Schedule MPI as outpatient Continue home meds Problems: Comment Review of Relevant I have reviewed the following items samson (where applicable) has been applied. Labs Laboratory Tests Test 08/21/16 15:05 08/21/16 18:12 08/21/16 20:30 08/22/16 02:51 White Blood Count 5.9x10^3/uL (4.0-11.0) Red Blood Count 5.99x10^6/uL (4.30-5.70) Hemoglobin 13.6g/dL (13.0-17.5) Hematocrit 42.7% (39.0-53.0) Mean Corpuscular Volume 71fL (79-100) Mean Corpuscular Hemoglobin 23pg (25-35) Mean Corpuscular Hemoglobin Concent 32g/dL (31-37) Red Cell Distribution Width 14.8% (11.5-14.5) Platelet Count 180x10^3/uL (140-400) Neutrophils (%) (Auto) 54% (31-73) Lymphocytes (%) (Auto) 33% (24-48) Monocytes (%) (Auto) 9% (0-9) Eosinophils (%) (Auto) 3% (0-3) Basophils (%) (Auto) 1% (0-3) Neutrophils # (Auto) 3.2x10^3uL (1.8-7.7) Lymphocytes # (Auto) 2.0x10^3/uL (1.0-4.8) Monocytes # (Auto) 0.5x10^3/uL (0.0-1.1) Eosinophils # (Auto) 0.2x10^3/uL (0.0-0.7) Basophils # (Auto) 0.1x10^3/uL (0.0-0.2) Platelet Estimate Adequate (ADEQUATE) Hypochromasia Slight Poikilocytosis Slight Anisocytosis Microcytosis Slight Sodium Level 142mmol/L (136-145) Potassium Level 4.0mmol/L (3.5-5.1) Chloride Level 104mmol/L (98-107) Carbon Dioxide Level 28mmol/L (21-32) Anion Gap 10 (6-14) Blood Urea Nitrogen 18mg/dL (8-26) Creatinine 1.2mg/dL (0.7-1.3) Estimated GFR (Cockcroft-Gault) 66.1 Glucose Level 205mg/dL (70-99) Calcium Level 9.7mg/dL (8.5-10.1) Troponin I Quantitative < 0.017ng/mL (0.000-0.055) Glucose (Fingerstick) 179mg/dL (70-99) 328mg/dL (70-99) 292mg/dL (70-99) Test 08/22/16 04:37 08/22/16 04:57 08/22/16 06:55 08/22/16 07:30 White Blood Count 8.8x10^3/uL (4.0-11.0) Red Blood Count 5.79x10^6/uL (4.30-5.70) Hemoglobin 13.0g/dL (13.0-17.5) Hematocrit 42.5% (39.0-53.0) Mean Corpuscular Volume 73fL (79-100) Mean Corpuscular Hemoglobin 23pg (25-35) Mean Corpuscular Hemoglobin Concent 31g/dL (31-37) Red Cell Distribution Width 15.2% (11.5-14.5) Platelet Count 168x10^3/uL (140-400) Neutrophils (%) (Auto) 85% (31-73) Lymphocytes (%) (Auto) 12% (24-48) Monocytes (%) (Auto) 4% (0-9) Eosinophils (%) (Auto) 0% (0-3) Basophils (%) (Auto) 0% (0-3) Neutrophils # (Auto) 7.4x10^3uL (1.8-7.7) Lymphocytes # (Auto) 1.0x10^3/uL (1.0-4.8) Monocytes # (Auto) 0.3x10^3/uL (0.0-1.1) Eosinophils # (Auto) 0.0x10^3/uL (0.0-0.7) Basophils # (Auto) 0.0x10^3/uL (0.0-0.2) Sodium Level 137mmol/L (136-145) Potassium Level 4.2mmol/L (3.5-5.1) Chloride Level 101mmol/L (98-107) Carbon Dioxide Level 22mmol/L (21-32) Anion Gap 14 (6-14) Blood Urea Nitrogen 21mg/dL (8-26) Creatinine 1.2mg/dL (0.7-1.3) Estimated GFR (Cockcroft-Gault) 80.0 Glucose Level 290mg/dL (70-99) Calcium Level 9.2mg/dL (8.5-10.1) Glucose (Fingerstick) 238mg/dL (70-99) Troponin I Quantitative < 0.017ng/mL (0.000-0.055) Test 08/22/16 07:49 08/22/16 08:17 08/22/16 09:45 08/22/16 12:27 Glucose (Fingerstick) 226mg/dL (70-99) 231mg/dL (70-99) 275mg/dL (70-99) Troponin I Quantitative < 0.017ng/mL (0.000-0.055) Test 08/22/16 16:31 08/22/16 20:37 08/23/16 04:16 08/23/16 05:00 Glucose (Fingerstick) 188mg/dL (70-99) 175mg/dL (70-99) Sodium Level 137mmol/L (136-145) Potassium Level 3.7mmol/L (3.5-5.1) Chloride Level 103mmol/L (98-107) Carbon Dioxide Level 26mmol/L (21-32) Anion Gap 8 (6-14) Blood Urea Nitrogen 22mg/dL (8-26) Creatinine 1.1mg/dL (0.7-1.3) Estimated GFR (Cockcroft-Gault) 88.4 Glucose Level 208mg/dL (70-99) Calcium Level 8.6mg/dL (8.5-10.1) White Blood Count 8.3x10^3/uL (4.0-11.0) Red Blood Count 5.58x10^6/uL (4.30-5.70) Hemoglobin 12.8g/dL (13.0-17.5) Hematocrit 40.1% (39.0-53.0) Mean Corpuscular Volume 72fL (79-100) Mean Corpuscular Hemoglobin 23pg (25-35) Mean Corpuscular Hemoglobin Concent 32g/dL (31-37) Red Cell Distribution Width 14.6% (11.5-14.5) Platelet Count 171x10^3/uL (140-400) Neutrophils (%) (Auto) 54% (31-73) Lymphocytes (%) (Auto) 35% (24-48) Monocytes (%) (Auto) 8% (0-9) Eosinophils (%) (Auto) 2% (0-3) Basophils (%) (Auto) 1% (0-3) Neutrophils # (Auto) 4.5x10^3uL (1.8-7.7) Lymphocytes # (Auto) 2.9x10^3/uL (1.0-4.8) Monocytes # (Auto) 0.7x10^3/uL (0.0-1.1) Eosinophils # (Auto) 0.2x10^3/uL (0.0-0.7) Basophils # (Auto) 0.1x10^3/uL (0.0-0.2) Test 08/23/16 08:08 08/23/16 11:16 Glucose (Fingerstick) 219mg/dL (70-99) 202mg/dL (70-99) Laboratory Tests Test 08/22/16 16:31 08/22/16 20:37 08/23/16 04:16 08/23/16 05:00 Glucose (Fingerstick) 188mg/dL (70-99) 175mg/dL (70-99) Sodium Level 137mmol/L (136-145) Potassium Level 3.7mmol/L (3.5-5.1) Chloride Level 103mmol/L (98-107) Carbon Dioxide Level 26mmol/L (21-32) Anion Gap 8 (6-14) Blood Urea Nitrogen 22mg/dL (8-26) Creatinine 1.1mg/dL (0.7-1.3) Estimated GFR (Cockcroft-Gault) 88.4 Glucose Level 208mg/dL (70-99) Calcium Level 8.6mg/dL (8.5-10.1) White Blood Count 8.3x10^3/uL (4.0-11.0) Red Blood Count 5.58x10^6/uL (4.30-5.70) Hemoglobin 12.8g/dL (13.0-17.5) Hematocrit 40.1% (39.0-53.0) Mean Corpuscular Volume 72fL (79-100) Mean Corpuscular Hemoglobin 23pg (25-35) Mean Corpuscular Hemoglobin Concent 32g/dL (31-37) Red Cell Distribution Width 14.6% (11.5-14.5) Platelet Count 171x10^3/uL (140-400) Neutrophils (%) (Auto) 54% (31-73) Lymphocytes (%) (Auto) 35% (24-48) Monocytes (%) (Auto) 8% (0-9) Eosinophils (%) (Auto) 2% (0-3) Basophils (%) (Auto) 1% (0-3) Neutrophils # (Auto) 4.5x10^3uL (1.8-7.7) Lymphocytes # (Auto) 2.9x10^3/uL (1.0-4.8) Monocytes # (Auto) 0.7x10^3/uL (0.0-1.1) Eosinophils # (Auto) 0.2x10^3/uL (0.0-0.7) Basophils # (Auto) 0.1x10^3/uL (0.0-0.2) Test 08/23/16 08:08 08/23/16 11:16 Glucose (Fingerstick) 219mg/dL (70-99) 202mg/dL (70-99) Medications Current Medications Ketorolac Tromethamine (Toradol) 30 mg 1X ONCE IV Last administered on 16:16; Start 08/21/16 at 16:15; Stop 08/21/16 at 16:16; Status DC Diphenhydramine HCl (Benadryl) 25 mg 1X ONCE IVP Last administered on 16:17; Start 08/21/16 at 16:15; Stop 08/21/16 at 16:16; Status DC Metoclopramide HCl 10 mg 10 mg 1X ONCE IV Last administered on 08/21/16 16:15 ; Start 08/21/16 at 16:15; Stop 08/21/16 at 16:16; Status DC Sodium Chloride (Iv Sodium Chloride 0.9% 500ml Bag) 500 ml @ 500 mls/hr 1X ONCE IV Last administered on 08/21/16 16:17; Start 08/21/16 at 16:15; Stop 04/27 at 17:14; Status DC Dexamethasone Sodium Phosphate (Decadron) 10 mg 1X ONCE IV Last administered on 08/21/16 16:16; Start 08/21/16 at 16:15; Stop 08/21/16 at 16:16; Status DC Ondansetron HCl (Zofran) 4 mg PRN Q8HRS PRN IV NAUSEA/VOMITING Last administered on 08/22/16 07:50; Start 08/21/16 at 16:15; Stop 08/22/16 at 16:14 ; Status DC Fentanyl Citrate (Fentanyl 2ml Vial) 50 mcg PRN Q2HR PRN IV PAIN; Start at 16:15; Stop 08/22/16 at 16:14; Status DC Acetaminophen (Tylenol) 650 mg PRN Q4HRS PRN PO FEVER Last administered on 08/22 10:07; Start 08/21/16 at 16:15; Stop 08/22/16 at 16:14; Status DC Acetaminophen (Tylenol) 325 mg PRN Q6HRS PRN PO MILD PAIN / TEMP; Start at 21:15 Acetaminophen/ Hydrocodone Bitart (Lortab 5/325) 1 tab PRN Q6HRS PRN PO MODERATE TO SEVERE PAIN Last administered on 08/22/16 18:03; Start 08/21/16 at 21:15 Hydralazine HCl (Apresoline) 10 mg PRN Q4HRS PRN IVP ELEVATED BP, SEE COMMENTS ; Start 08/21/16 at 21:15 Ondansetron HCl (Zofran) 4 mg PRN Q8HRS PRN IV NAUSEA/VOMITING; Start 08/21/16 at 21:15 Albuterol Sulfate (Ventolin Neb Soln) 2.5 mg PRN Q4HRS PRN NEB SHORTNESS OF BREATH; Start 08/21/16 at 21:15 Atorvastatin Calcium (Lipitor) 20 mg QHS PO Last administered on 08/22/16 20: 13; Start 08/21/16 at 22:00 Lisinopril (Prinivil) 10 mg DAILY PO Last administered on 08/23/16 07:54; Start 08/22/16 at 09:00 Tizanidine HCl (Zanaflex) 4 mg TID PO Last administered on 08/23/16 07:55; Start 08/21/16 at 22:00 Insulin Aspart (Novolog) 0-7 UNITS TIDWMEALS SQ Last administered on 08/22/16 13:21; Start 08/22/16 at 08:00; Stop 08/22/16 at 16:48; Status DC Dextrose 12.5 gm PRN Q15MIN PRN IV SEE COMMENTS; Start 08/21/16 at 21:15; Stop 08/22/16 at 16:51; Status DC Clopidogrel Bisulfate (Plavix) 75 mg 1X ONCE PO Last administered on 07:47; Start 08/22/16 at 07:45; Stop 08/22/16 at 07:46; Status DC Insulin Aspart (Novolog) 0-9 UNITS TIDWMEALS SQ Last administered on 08/23/16 12:53; Start 08/22/16 at 17:00 Dextrose 12.5 gm PRN Q15MIN PRN IV SEE COMMENTS; Start 08/22/16 at 17:00 Escitalopram Oxalate (Lexapro) 10 mg DAILY PO Last administered on 08/23/16 09 :02; Start 08/23/16 at 09:00 Clopidogrel Bisulfate (Plavix) 75 mg DAILYWBKFT PO Last administered on 07:54; Start 08/23/16 at 08:00 Active Scripts Active Reported Invokamet 150-1,000 mg Tablet (Canagliflozin/Metformin HCl) 1 Each Tablet 150-1, 000 PO BID Tizanidine Hcl 4 Mg Tablet 4 PO TID Atorvastatin Calcium 20 Mg Tablet 20 PO Lisinopril 10 Mg Tablet 10 PO DAILY Vitals/I & O Vital Sign - Last 24 Hours 08/22/16 08/22/16 08/22/16 08/23/16 19:00 20:00 23:47 03:00 Temp 98.3 97.9 98.3 97.9 Pulse 95 82 Resp 16 16 B/P 133/86 114/62 Pulse Ox 96 95 O2 Delivery Room Air Room Air Room Air Room Air 08/23/16 08/23/16 08/23/16 08/23/16 07:00 07:54 08:00 11:00 Temp 97.5 97.9 97.5 97.9 Pulse 94 82 91 Resp 16 B/P 126/84 114/62 148/75 Pulse Ox 98 97 O2 Delivery Room Air Room Air Room Air Intake and Output 08/22/16 08/22/16 08/23/16 15:00 23:00 07:00 Intake Total 460 ml 1340 ml Balance 460 ml 1340 ml CASTLE,NIAL K III DO Aug 23, 2016 15:10
--- NOTE | 2016-08-24 08:14 | CARD ---
APPROVED REPORT EXAM: Two-dimensional and M-mode echocardiogram with Doppler and color Doppler. Other Information Quality : GoodHR: 80bpm Rhythm : NSR INDICATION Chest Pain Possible stroke Echo Enhancing Agent Agent/Amount Used: Agitated Saline 8mL 2D DIMENSIONS RVDd2.7 (2.9-3.5cm)Left Atrium(2D)3.4 (1.6-4.0cm) IVSd1.0 (0.7-1.1cm)Aortic Root(2D)2.9 (2.0-3.7cm) LVDd5.0 (3.9-5.9cm)LVOT Diameter2.2 (1.8-2.4cm) PWd1.0 (0.7-1.1cm)LVDs3.6 (2.5-4.0cm) FS (%) 27.0 %SV61.5 ml LVEF(%)52.5 (>50%) Aortic Valve AoV Peak Valentin.151.2cm/sAoV VTI26.6cm AO Peak GR.9.1mmHgLVOT Peak Valentin.106.7cm/s AO Mean GR.5mmHgAVA (VMAX)2.71cm2 Mitral Valve MV E Svqhzjgx09.4cm/sMV E Peak Gr.5mmHg MV DECEL [id number] A Xopavbkn56.7cm/s MV E Mean Gr.2mmHgE/A Ratio1.5 MV A [id number] Tricuspid Valve TR P. Wifwkvoy034pm/sTR Peak Gr.26mmHg Pulmonary Vein S1 Kraogofb14.5cm/sD2 Ejydiqip08.8cm/s PVa [id number] LEFT VENTRICLE The left ventricle is normal size. There is normal left ventricular wall thickness. The left ventricu lar systolic function is normal and the ejection fraction is within normal range. The Ejection Fracti on is 50-55%. There is normal LV segmental wall motion. The left ventricular diastolic function and f illing is normal for age. No left ventricle thrombus noted on this study. RIGHT VENTRICLE The right ventricle is normal size. There is normal right ventricular wall thickness. The right ventr icular systolic function is normal. ATRIA The left atrium size is normal. The right atrium size is normal. The interatrial septum is intact wit h no evidence for an atrial septal defect or patent foramen ovale as noted on 2-D or Doppler imaging. Injection of bubbles documented no interatrial shunt. AORTIC VALVE The aortic valve is normal in structure and function. Doppler and Color Flow revealed no significant aortic regurgitation. There is no significant aortic valvular stenosis. MITRAL VALVE The mitral valve is normal in structure and function. There is no evidence of mitral valve prolapse. There is no mitral valve stenosis. Doppler and Color Flow revealed no mitral valve regurgitation note d. TRICUSPID VALVE Doppler and Color Flow revealed trace tricuspid regurgitation. The pulmonary artery systolic pressure is estimated at 31 mmHg. There is mild pulmonary hypertension. PULMONIC VALVE Doppler and Color Flow revealed trace pulmonic valvular regurgitation. There is no pulmonic valvular stenosis. GREAT VESSELS The aortic root is normal in size. The ascending aorta is normal in size. The IVC is normal in size a nd collapses >50% with inspiration. PERICARDIAL EFFUSION There is no evidence of significant pericardial effusion. Critical Notification Critical Value: No <Conclusion> The left ventricular systolic function is normal and the ejection fraction is within normal range. Th e Ejection Fraction is 50-55%. There is normal LV segmental wall motion. The left ventricular diastolic function and filling is normal for age. The interatrial septum is intact with no evidence for an atrial septal defect or patent foramen ovale as noted on 2-D or Doppler imaging. Injection of bubbles documented no interatrial shunt.
== END 2016-08-23 17:55 | disposition home or self-care (01) | DRG 69 ==
LOC: ER 14:25 → 6 SOUTH 16:22
PROVIDERS: ADMIT Internal Medicine; ATTEND Internal Medicine
DX: G45.9 Transient cerebral ischemic attack, unspecified (principal); E11.649 Type 2 diabetes mellitus with hypoglycemia without coma; I10 Essential (primary) hypertension; Z82.49 Family history of ischemic heart disease and other diseases of the circulatory system; Z86.73 Personal history of transient ischemic attack (TIA), and cerebral infarction without residual deficits; Z88.6 Allergy status to analgesic agent
CPT/HCPCS: 99285; C8929; 36415; 70450; 70551; 80048; 82947; 84484; 85007; 85027; 93005; 93880; 96361; 96374; 96375; J1100; J1200; J1815; J1885; J2405; J2765; J7040; 97530